=== PATIENT | male | born 1945 | race Hispanic/Latino ===

== ENCOUNTER 2017-12-06 22:39 | Emergency (ER) | payer OTHER ==
[2017-12-06] MEDS ORDERED: LIDOCAINE HCL 1% 20 ML VIAL ONE (23:22)
[2017-12-06] MEDS ORDERED: TETANUS/DIPHTHERIA TOXOID [ADULT] 0.5 ML VIAL IM ONE (23:23)
[2017-12-07] MEDS ORDERED: CEFAZOLIN SODIUM 1 GM VIAL ONE (00:51)
[2017-12-07] MEDS ORDERED: GENTAMICIN SULFATE 80 MG/2 ML VIAL ONE (00:51)
[2017-12-07] MEDS ORDERED: WATER FOR INJECTION,STERILE 20 ML VIAL ONE (00:52)
[2018-03-07] MEDS ORDERED: VERE240SR PO (12:30)
[2018-03-07] MEDS ORDERED: ATOR10TA69 PO (12:30)
[2018-03-07] MEDS ORDERED: VERA120C2 PO (12:30)
[2018-03-07] MEDS ORDERED: GLIP2.5T2 PO (12:30)
[2018-03-07] MEDS ORDERED: CARV12.511 PO (12:30)
[2018-03-07] MEDS ORDERED: ASPI-555 PO (12:30)
[2018-03-07] MEDS ORDERED: LISI10TA7 PO (12:30)
[2018-03-07] MEDS ORDERED: GEMF600T3 PO (12:30)
[2018-03-07] MEDS ORDERED: RANI150C4 PO (12:30)
[2018-03-07] MEDS ORDERED: METF10004 PO (12:30)
== END 2017-12-07 02:06 | disposition left against medical advice (07) ==
LOC: EDH 22:39
DX: S62.637B Displaced fracture of distal phalanx of left little finger, initial encounter for open fracture (principal); S09.8XXA Other specified injuries of head, initial encounter; E11.9 Type 2 diabetes mellitus without complications; E78.5 Hyperlipidemia, unspecified; I10 Essential (primary) hypertension; Z88.1 Allergy status to other antibiotic agents; W18.39XA Other fall on same level, initial encounter; Y93.01 Activity, walking, marching and hiking; Y92.89 Other specified places as the place of occurrence of the external cause; Y99.8 Other external cause status
CPT/HCPCS: 73130; 90471; 90714; 96365; 96372; 99284; J0690; J1580

== ENCOUNTER 2018-03-10 08:26 | Day surgery (SDC) | payer OTHER ==
[~2018-03-10] VITALS: Ht 165.1 cm; Wt 92.6 kg
[~2018-03-10 08:26] MED LIST: ASPI-555 PO; ATOR10TA69 PO; CARV12.511 PO; GEMF600T3 PO; GLIP2.5T2 PO; LISI10TA7 PO; METF10004 PO; RANI150C4 PO; SODIUM CHLORIDE 0.9% 1000ML 1,000 ML IV ONE; VERA120C2 PO; VERE240SR PO
[2018-03-10 08:46] VITALS: BP 146/66
[2018-03-10] MEDS ORDERED: PROPOFOL 1000 MG/100 ML 100 ML IV ONE (10:08)
[2018-03-10] MEDS ORDERED: LIDOCAINE HCL 1% 20 ML VIAL ONE (10:08)
[2018-03-10 10:33] VITALS: BP 88/41
== END 2018-03-10 11:07 | disposition home or self-care (01) ==
LOC: DAH 08:26 → ENDO 08:26
PROVIDERS: ATTEND Internal Medicine Gastroenterology
DX: Z09 Encounter for follow-up examination after completed treatment for conditions other than malignant neoplasm (principal); I10 Essential (primary) hypertension; E78.4 Other hyperlipidemia; I25.10 Atherosclerotic heart disease of native coronary artery without angina pectoris; E11.9 Type 2 diabetes mellitus without complications; M19.90 Unspecified osteoarthritis, unspecified site; Z79.84 Long term (current) use of oral hypoglycemic drugs; Z79.82 Long term (current) use of aspirin; Z86.010 Personal history of colon polyps; Z79.899 Other long term (current) drug therapy; Z98.890 Other specified postprocedural states
CPT/HCPCS: 82948 ×2; 93005; A4606; G0105; J2704; J7030

== ENCOUNTER → 2018-03-18 | Outpatient (CLI) | payer OTHER ==
[~2018-03-18] MED LIST changes: -SODIUM CHLORIDE 0.9% 1000ML 1,000 ML IV ONE
== END | disposition home or self-care (01) ==
LOC: RAH 12:33
PROVIDERS: ATTEND Family Medicine
DX: M79.89 Other specified soft tissue disorders (principal)
CPT/HCPCS: 93971

== ENCOUNTER 2018-03-31 12:32 | Observation (INO) | payer OTHER ==
[~2018-03-31] VITALS: Ht 162.6 cm; Wt 97.5 kg
[2018-03-31] MEDS ORDERED: ONDANSETRON HCL MDV 20ML 2 MG/ML VIAL ONE (12:57)
[2018-03-31 13:00] LABS: BASOPHILS % (AUTO) 1.2 % (0.0-5.0); EOSINOPHILS % (AUTO) 5.7 % (0.0-8.0); HEMATOCRIT 37.2 % (42-54); LYMPHOCYTES % (AUTO) 33.4 % (21.0-51.0); MEAN CORPUSCULAR HEMOGLOBIN 31.9 pg (27.0-33.0); MEAN CORPUSCULAR HGB CONC 35.3 g/dL (32.0-36.0); MEAN CORPUSCULAR VOLUME 90.2 fL (79-99); MONOCYTES % (AUTO) 9.2 % (3.0-13.0); NEUTROPHILS % (AUTO) 50.5 % (40.0-77.0); NUCLEATED RED BLOOD CELLS 0.1 % (0.0-0.19); PLATELET COUNT (AUTO) 295 K/uL (130-400); RED BLOOD CELL COUNT(AUTO) 4.13 MIL/uL (4.50-6.20); RED CELL DISTRIBUTION WIDTH 13.7 % (11.0-15.5); WHITE BLOOD COUNT (AUTO) 6.7 K/uL (4.8-10.8)
[2018-03-31 13:13] LABS: CREATININE 1.4 mg/dL (0.5-1.5); POTASSIUM 5.2 mmol/L (3.5-5.1)
[2018-03-31 13:19] LABS: ALBUMIN 4.6 g/dL (3.5-5.0); BILIRUBIN,DIRECT 0.2 mg/dL (0.0-0.3); BILIRUBIN,TOTAL 0.7 mg/dL (0.2-1.0); TOTAL PROTEIN, SERUM 8.5 g/dL (6.0-8.3)
[2018-03-31 13:27] LABS: APPEARANCE,URINE Cloudy (CLEAR); BILIRUBIN,URINE Negative (NEGATIVE); COLOR,URINE Yellow (YELLOW); GLUCOSE, URINE (UA) TRACE mg/dL (NEGATIVE); KETONES,URINE Trace mg/dL (NEGATIVE); LEUKOCYTE ESTERASE ,URINE Negative (NEGATIVE); NITRATE,URINE Negative (NEGATIVE); OCCULT BLOOD,URINE Negative (NEGATIVE); PROTEIN,URINE POS 2+ (NEGATIVE)
[2018-03-31] MEDS ORDERED: ASPIRIN 325 MG TABLET ONE ×2 (13:34→13:48)
[2018-03-31 13:47] LABS: BACTERIA,URINE Moderate /HPF (None Seen); RBC,URINE 0-1 /HPF (0-1)
[2018-03-31 14:00] LABS: B-TYPE NATRIURETIC PEPTIDE 25 pg/mL (0-100)
[2018-03-31] MEDS ORDERED: ACETAMINOPHEN 325 MG TAB PO PRN ×2 (16:30→19:19)
[2018-03-31] MEDS ORDERED: SODIUM CHLORIDE 0.9% 1000ML 1,000 ML IV SCH (16:30)
[2018-03-31] MEDS ORDERED: ONDANSETRON HCL MDV 20ML 2 MG/ML VIAL IVP PRN (16:30)
[2018-03-31 18:42] LABS: CREATINE KINASE MB 0.8 ng/mL (0.5-3.6); CREATINE KINASE, TOTAL 50 U/L (21-232); MYOGLOBIN 46 ng/mL (10-92); TROPONIN I < 0.04 ng/mL (0.00-0.06)
[2018-03-31 19:00] VITALS: BP 131/67
[2018-03-31 19:02] VITALS: BP 136/65
[2018-03-31 19:04] VITALS: BP 124/60
[2018-03-31] MEDS ORDERED: LACTULOSE 20 GM/30 ML UDCUP PO PRN (23:45)
[2018-03-31] MEDS ORDERED: POTASSIUM CHLORIDE 20 MEQ ERTAB PO PRN (23:45)
[2018-03-31] MEDS ORDERED: LIDOCAINE HCL-MPF 1% 2ML VIAL IVP PRN (23:45)
[2018-03-31] MEDS ORDERED: POTASSIUM CHLORIDE 10% ELIXIR 20 MEQ/15 ML UDCUP PO PRN (23:45)
[2018-03-31] MEDS ORDERED: POTASSIUM CHLORIDE 20MEQ/100ML 100 ML IV PRN (23:45)
[2018-04-01] VITALS (7 sets, daily range): BP systolic 118–160; BP diastolic 62–88
[2018-04-01 00:53] LABS: CREATINE KINASE MB 0.8 ng/mL (0.5-3.6); CREATINE KINASE, TOTAL 51 U/L (21-232); MYOGLOBIN 42 ng/mL (10-92); TROPONIN I < 0.04 ng/mL (0.00-0.06)
[2018-04-01 05:04] LABS: HEMATOCRIT 28.6 % (42-54); MEAN CORPUSCULAR HEMOGLOBIN 33.2 pg (27.0-33.0); MEAN CORPUSCULAR HGB CONC 37.5 g/dL (32.0-36.0); MEAN CORPUSCULAR VOLUME 88.4 fL (79-99); PLATELET COUNT (AUTO) 198 K/uL (130-400); RED BLOOD CELL COUNT(AUTO) 3.23 MIL/uL (4.50-6.20); RED CELL DISTRIBUTION WIDTH 13.4 % (11.0-15.5)
[2018-04-01 05:10] LABS: POTASSIUM 3.8 mmol/L (3.5-5.1)
[2018-04-01 07:04] LABS: CREATINE KINASE MB 0.7 ng/mL (0.5-3.6); CREATINE KINASE, TOTAL 53 U/L (21-232); MYOGLOBIN 55 ng/mL (10-92); TROPONIN I < 0.04 ng/mL (0.00-0.06)
[2018-04-01] MEDS ORDERED: FAMOTIDINE 20MG TAB 20 MG TAB PO SCH (09:00)
[2018-04-01] MEDS: METFORMIN HCL 500 MG TABLET PO SCH (17:23)
[2018-04-01] MEDS: VERAPAMIL HCL 240 MG SRTAB PO SCH (17:23)
[2018-04-01] MEDS ORDERED: ATORVASTATIN CALCIUM 10 MG TABLET PO SCH (21:00)
[2018-04-01] MEDS: GEMFIBROZIL 600 MG TABLET PO SCH (21:14)
[2018-04-01] MEDS: CARVEDILOL 12.5 MG TABLET PO SCH (21:15)
[2018-04-02] VITALS (7 sets, daily range): BP systolic 130–174; BP diastolic 67–78
[2018-04-02] MEDS: METFORMIN HCL 500 MG TABLET PO SCH ×2 (08:00→16:42)
[2018-04-02] MEDS ORDERED: ASPIRIN 81 MG EC TAB PO SCH (09:00)
[2018-04-02] MEDS ORDERED: LISINOPRIL 10 MG TABLET PO SCH (09:00)
[2018-04-02] MEDS ORDERED: GLIPIZIDE XL 2.5MG TAB PO SCH (09:00)
[2018-04-02] MEDS ORDERED: FAMOTIDINE 20MG TAB 20 MG TAB PO SCH (09:00)
[2018-04-02] MEDS ORDERED: VERAPAMIL HCL 120 MG PO SCH (09:00)
[2018-04-02] MEDS: GEMFIBROZIL 600 MG TABLET PO SCH (10:15)
[2018-04-02] MEDS: CARVEDILOL 12.5 MG TABLET PO SCH (10:16)
[2018-04-02] MEDS: VERAPAMIL HCL 240 MG SRTAB PO SCH (16:42)
== END 2018-04-02 19:05 | disposition home or self-care (01) ==
LOC: EDH 12:32 → EDHIP 15:22 → 3BH 20:17
PROVIDERS: ADMIT Internal Medicine; ATTEND Internal Medicine
DX: R55 Syncope and collapse (principal); E11.22 Type 2 diabetes mellitus with diabetic chronic kidney disease; E78.5 Hyperlipidemia, unspecified; I25.10 Atherosclerotic heart disease of native coronary artery without angina pectoris; I12.9 Hypertensive chronic kidney disease with stage 1 through stage 4 chronic kidney disease, or unspecified chronic kidney disease; N18.9 Chronic kidney disease, unspecified; E86.0 Dehydration; Z95.5 Presence of coronary angioplasty implant and graft; Z87.891 Personal history of nicotine dependence; Z79.899 Other long term (current) drug therapy
CPT/HCPCS: 36415 ×2; 70450; 71045; 80048 ×2; 80076; 81001; 82550 ×4; 82553 ×3; 82948 ×8; 83874 ×3; 83880; 84484 ×4; 85025; 85027; 93005 ×4; 93306; 93880; 99285; G0378 ×52

== ENCOUNTER 2021-06-25 11:51 | Emergency (ER) | payer OTHER ==
[~2021-06-25] VITALS: Ht 162.6 cm; Wt 93.0 kg
[~2021-06-25 11:51] MED LIST changes: -ASPI-555 PO; +ASPI-556 PO; -GEMF600T3 PO; +GEMF600T89 PO; +LISI10TA24 PO; -LISI10TA7 PO; +METF-446 PO; -METF10004 PO
[2021-06-25 12:19] LABS: BASOPHILS % (AUTO) 0.5 % (0.0-5.0); EOSINOPHILS % (AUTO) 1.4 % (0.0-8.0); LYMPHOCYTES % (AUTO) 7.5 % (21.0-51.0); MEAN CORPUSCULAR HGB CONC 35.6 g/dL (32.0-36.0); MEAN CORPUSCULAR VOLUME 89.9 fL (79-99); MONOCYTES % (AUTO) 5.2 % (3.0-13.0); NEUTROPHILS % (AUTO) 85.2 % (40.0-77.0); PLATELET COUNT (AUTO) 197 K/uL (130-400); RED BLOOD CELL COUNT(AUTO) 4.56 MIL/uL (4.50-6.20); RED CELL DISTRIBUTION WIDTH 13.1 % (11.0-15.5); WHITE BLOOD COUNT (AUTO) 12.1 K/uL (4.8-10.8)
[2021-06-25 12:30] LABS: CARBON DIOXIDE 23 mmol/L (21-32); CHLORIDE 104 mmol/L (101-111); CREATININE 0.9 mg/dL (0.5-1.5); GLOMERULAR FILTR. RATE CALC 87 mL/min (>60); GLUCOSE,RANDOM 243 mg/dL (70-105); POTASSIUM 4.4 mmol/L (3.5-5.1); SODIUM SERUM 140 mmol/L (136-145); UREA NITROGEN, BLOOD 25 mg/dL (7-18)
[2021-06-25 12:41] LABS: ALANINE AMINOTRANSFERASE 50 U/L (12-78); ALBUMIN 4.2 g/dL (3.5-5.0); AMYLASE 48 U/L (25-115); ASPARTATE AMINOTRANSFERASE 31 U/L (10-37); BILIRUBIN,TOTAL 0.8 mg/dL (0.2-1.0); CREATINE KINASE, TOTAL 68 U/L (21-232); LIPASE 84 U/L (114-286); MYOGLOBIN 36 ng/mL (10-92); TOTAL PROTEIN, SERUM 8.3 g/dL (6.0-8.3); TROPONIN I < 0.04 ng/mL (0.00-0.06)
[2021-06-25] MEDS ORDERED: LIDO 2% VISC 30ML+MAG/AL/SIMETH 30ML+DICYCLOMINE 20MG 10ML PO PRN ×3 (13:00)
[2021-06-25] MEDS ORDERED: 0.9%NACL 1000ML 1,000 ML IV SCH (13:00)
[2021-06-25] MEDS ORDERED: COMPOUND PO MISCELLANEOUS 1 EACH MISC MISC PRN (13:00)
[2021-06-25] MEDS ORDERED: MORPHINE 4 MG SYG IVP SCH (13:00)
[2021-06-25] MEDS ORDERED: DICYCLOMINE 20MG (10MG/ML) AMP IM ONE (13:00)
[2021-06-25] MEDS ORDERED: PANTOPRAZOLE 40 MG/VIAL IVP SCH (13:00)
[2021-06-25] MEDS ORDERED: LIDOCAINE HCL 2% VISCOUS 15 ML UDCUP PO ONE (13:00)
[2021-06-25] MEDS ORDERED: ONDANSETRON 4MG INJ IVP SCH (13:00)
[2021-06-25] MEDS ORDERED: IOHEXOL 350 MG/ML 100ML INFUS..BTL IV ONE (13:09)
[2021-06-25 14:01] VITALS: BP 129/65
[2021-06-25 14:54] LABS: APPEARANCE,URINE Clear (CLEAR); BILIRUBIN,URINE Negative (NEGATIVE); COLOR,URINE Yellow (YELLOW); GLUCOSE, URINE (UA) >=1000 mg/dL (NEGATIVE); KETONES,URINE Negative (NEGATIVE); LEUKOCYTE ESTERASE ,URINE Negative (NEGATIVE); NITRATE,URINE Negative (NEGATIVE); OCCULT BLOOD,URINE Negative (NEGATIVE); PROTEIN,URINE Negative (NEGATIVE); UROBILINOGEN,URINE 0.2 mg/dL (0.2-1.0)
[2021-06-25 15:30] LABS: BACTERIA,URINE Rare /HPF (None Seen); RBC,URINE 0-1 /HPF (0-1); SQUAMOUS EPITHELIAL CELL,UR Rare /HPF (0-2); WBC,URINE 0-1 /HPF (0-1)
[2021-06-25] MEDS ORDERED: DICY20TA2 PO (16:57)
[2021-06-25] MEDS ORDERED: ONDA4TAB10 PO (16:57)
[2021-06-25] MEDS ORDERED: PANT40TA54 PO (16:57)
[2021-06-25] MEDS ORDERED: LIDOCAINE HCL 2% VISCOUS 15 ML UDCUP ONE (17:12)
[2021-06-25 17:21] VITALS: BP 114/49
[2021-06-25] MEDS ORDERED: MAG/ALUM/SIMETH 30 ML UDCUP PO ONE (18:00)
== END 2021-06-25 17:22 | disposition home or self-care (01) ==
LOC: EDH 11:51
DX: K29.00 Acute gastritis without bleeding (principal); K21.9 Gastro-esophageal reflux disease without esophagitis; E11.9 Type 2 diabetes mellitus without complications; E78.00 Pure hypercholesterolemia, unspecified; I10 Essential (primary) hypertension; Z79.82 Long term (current) use of aspirin; Z79.84 Long term (current) use of oral hypoglycemic drugs; Z79.899 Other long term (current) drug therapy; Z88.5 Allergy status to narcotic agent; Z95.5 Presence of coronary angioplasty implant and graft
CPT/HCPCS: 36415; 71045; 74177; 76705; 80053; 81001; 82150; 82550; 83690; 83874; 84484 ×2; 85025; 93005; 96361; 96374; 96375; 99285; C9113; J2405; Q9967; J2270

== ENCOUNTER 2021-09-12 11:52 | Observation (INO) | payer OTHER ==
[~2021-09-12] VITALS: Ht 162.6 cm; Wt 60.9 kg
[~2021-09-12 11:52] MED LIST changes: +DICY20TA2 PO; +ONDA4TAB10 PO; +PANT40TA54 PO
[2021-09-12 12:17] LABS: HEMATOCRIT 38.4 % (42-54); MEAN CORPUSCULAR HEMOGLOBIN 31.7 pg (27.0-33.0); MEAN CORPUSCULAR HGB CONC 34.9 g/dL (32.0-36.0); MEAN CORPUSCULAR VOLUME 90.8 fL (79-99); PLATELET COUNT (AUTO) 169 K/uL (130-400); RED BLOOD CELL COUNT(AUTO) 4.23 MIL/uL (4.50-6.20); RED CELL DISTRIBUTION WIDTH 12.9 % (11.0-15.5); WHITE BLOOD COUNT (AUTO) 6.3 K/uL (4.8-10.8)
[2021-09-12 12:33] LABS: CREATININE 1.1 mg/dL (0.5-1.5); POTASSIUM 4.7 mmol/L (3.5-5.1)
[2021-09-12 12:42] LABS: ALBUMIN 4.1 g/dL (3.5-5.0); BILIRUBIN,TOTAL 0.6 mg/dL (0.2-1.0)
[2021-09-12 13:25] LABS: BAND NEUTROPHILS % (MANUAL) 2 % (0-2); EOSINOPHILS % (MANUAL) 1 % (1-6); LYMPHOCYTES % (MANUAL) 20 % (22-44); MAN.DIFF COMMENT-IMPRESSION MANUAL DIFFERENTIAL; MONOCYTES % (MANUAL) 7 % (2-9); PLATELET MORPHOLOGY COMMENT ADEQUATE; SEGMENTED NEUTROPHILS % 70 % (40-70)
[2021-09-12] MEDS ORDERED: ACETAMINOPHEN 325 MG TAB PO PRN (15:00)
[2021-09-12] MEDS ORDERED: CLONIDINE HCL 0.1 MG TABLET PO PRN (15:00)
[2021-09-12] MEDS ORDERED: ONDANSETRON 4MG INJ IVP PRN (15:00)
[2021-09-12] MEDS ORDERED: HYDRALAZINE 20MG/ML VIAL IV PRN (15:00)
[2021-09-12] MEDS ORDERED: ACETAMINOPHEN 650 MG SUPPOSITORY RC PRN (15:00)
[2021-09-12 15:04] LABS: APPEARANCE,URINE Clear (CLEAR); BILIRUBIN,URINE Negative (NEGATIVE); COLOR,URINE Yellow (YELLOW); GLUCOSE, URINE (UA) >=1000 mg/dL (NEGATIVE); KETONES,URINE Negative (NEGATIVE); LEUKOCYTE ESTERASE ,URINE Negative (NEGATIVE); NITRATE,URINE Negative (NEGATIVE); OCCULT BLOOD,URINE Negative (NEGATIVE); PROTEIN,URINE Negative (NEGATIVE); UROBILINOGEN,URINE 0.2 mg/dL (0.2-1.0)
[2021-09-12 15:18] LABS: BACTERIA,URINE Rare /HPF (None Seen); RBC,URINE 0-1 /HPF (0-1); SQUAMOUS EPITHELIAL CELL,UR Rare /HPF (0-2); WBC,URINE 0-1 /HPF (0-1)
[2021-09-12] MEDS: LACTATED RINGERS 1000ML 1,000 ML IV SCH ×2 (15:57→23:20)
[2021-09-12 22:40] VITALS: BP 171/42
[2021-09-12] MEDS ORDERED: GLUCAGON 1MG KIT 1 MG ML IM PRN (23:00)
[2021-09-12] MEDS ORDERED: KCL 20 MEQ ERTAB PO PRN (23:00)
[2021-09-12] MEDS ORDERED: DEXTROSE 50%-WATER 50 ML DISP.SYRIN IV PRN (23:00)
[2021-09-12] MEDS ORDERED: POTASSIUM CHLORIDE 10% ELIXIR 20 MEQ/15 ML UDCUP PO PRN (23:00)
[2021-09-12] MEDS ORDERED: POTASSIUM CHLORIDE 20MEQ/100ML 100 ML IV PRN (23:00)
[2021-09-12] MEDS ORDERED: LIDOCAINE HCL-MPF 1% 2ML VIAL IV PRN (23:00)
[2021-09-13 02:46] LABS: BASOPHILS % (AUTO) 0.6 % (0.0-5.0); EOSINOPHILS % (AUTO) 2.4 % (0.0-8.0); HEMATOCRIT 36.7 % (42-54); LYMPHOCYTES % (AUTO) 25.2 % (21.0-51.0); MEAN CORPUSCULAR HEMOGLOBIN 31.7 pg (27.0-33.0); MEAN CORPUSCULAR HGB CONC 35.1 g/dL (32.0-36.0); MEAN CORPUSCULAR VOLUME 90.2 fL (79-99); MONOCYTES % (AUTO) 9.5 % (3.0-13.0); PLATELET COUNT (AUTO) 163 K/uL (130-400); RED BLOOD CELL COUNT(AUTO) 4.07 MIL/uL (4.50-6.20); RED CELL DISTRIBUTION WIDTH 12.9 % (11.0-15.5); WHITE BLOOD COUNT (AUTO) 7.2 K/uL (4.8-10.8)
[2021-09-13 03:05] LABS: B-TYPE NATRIURETIC PEPTIDE 77 pg/mL (0-100)
[2021-09-13 03:09] LABS: CREATININE 0.9 mg/dL (0.5-1.5); MAGNESIUM 1.8 mg/dL (1.80-2.40); PHOSPHORUS 3.5 mg/dL (2.5-4.9); POTASSIUM 3.6 mmol/L (3.5-5.1); THYROID STIMULATING HORMONE 4.16 uIU/mL (0.36-3.74)
[2021-09-13 03:11] LABS: HEMOGLOBIN A1C 6.9 % (4.0-6.0)
[2021-09-13 04:27] VITALS: BP 140/64
[2021-09-13 04:28] VITALS: BP_SYST 136; BP_SYST 139; BP_DIAS 58; BP_DIAS 61
[2021-09-13] MEDS: LACTATED RINGERS 1000ML 1,000 ML IV SCH ×3 (07:00→22:11)
[2021-09-13] MEDS: INSULIN HUMULIN R 100 UNIT/ML 3ML SQ SCH ×4 (07:30→20:12)
[2021-09-13 08:37] VITALS: BP 132/61
[2021-09-13] MEDS: PANTOPRAZOLE 40 MG TAB DR PO SCH (10:44)
[2021-09-13] MEDS: ENOXAPARIN SODIUM 40 MG/0.4 ML SYRINGE SQ SCH (10:45)
[2021-09-13] MEDS ORDERED: ICOS1CAP PO (11:05)
[2021-09-13] MEDS ORDERED: FERR-72 PO (11:05)
[2021-09-13] MEDS ORDERED: EMPA10TA PO (11:05)
[2021-09-13] MEDS ORDERED: ATOR40TA69 PO (11:05)
[2021-09-13] MEDS ORDERED: ASPI-1197 PO (11:05)
[2021-09-13] MEDS ORDERED: FAMO20TA8 PO (11:05)
[2021-09-13] MEDS ORDERED: VERA240T95 PO (11:05)
[2021-09-13] MEDS ORDERED: CARV12.511 PO (11:05)
[2021-09-13] MEDS ORDERED: LISI10TA24 PO (11:05)
[2021-09-13] MEDS ORDERED: GLIP2.5T2 PO (11:05)
[2021-09-13] MEDS ORDERED: METF-527 PO (11:05)
[2021-09-13] MEDS ORDERED: VERA120T92 PO (11:05)
[2021-09-13] MEDS ORDERED: TAMS-1 PO (11:05)
[2021-09-13] MEDS ORDERED: CYAN500T9 PO (11:05)
[2021-09-13 12:36] VITALS: BP 140/70
[2021-09-13 16:49] VITALS: BP 141/60
[2021-09-13] MEDS: VERAPAMIL HCL 240 MG SRTAB PO SCH (20:17)
[2021-09-13] MEDS: ATORVASTATIN 40 MG TABLET PO SCH (20:17)
[2021-09-13] MEDS: FAMOTIDINE 20MG TAB PO SCH (20:17)
[2021-09-13 20:19] VITALS: BP 149/73
[2021-09-14] VITALS (7 sets, daily range): BP systolic 144–176; BP diastolic 45–86
[2021-09-14] MEDS: INSULIN HUMULIN R 100 UNIT/ML 3ML SQ SCH ×4 (05:54→20:04)
[2021-09-14] MEDS: LACTATED RINGERS 1000ML 1,000 ML IV SCH (05:55)
[2021-09-14] MEDS: CARVEDILOL 6.25 MG TABLET PO SCH ×2 (08:41→19:58)
[2021-09-14] MEDS: FAMOTIDINE 20MG TAB PO SCH ×2 (08:47→19:58)
[2021-09-14] MEDS: PANTOPRAZOLE 40 MG TAB DR PO SCH (08:47)
[2021-09-14] MEDS: ENOXAPARIN SODIUM 40 MG/0.4 ML SYRINGE SQ SCH (08:51)
[2021-09-14] MEDS ORDERED: VERAPAMIL HCL 240 MG SRTAB PO SCH ×2 (09:00→11:00)
[2021-09-14] MEDS ORDERED: ASPIRIN 81MG CHEW TAB PO SCH (09:00)
[2021-09-14] MEDS ORDERED: CYANOCOBALAMIN (VITAMIN B-12) 1,000 MCG TABLET PO SCH (09:00)
[2021-09-14] MEDS ORDERED: FERROUS SULFATE 325 MG TABLET.DR PO SCH (09:00)
[2021-09-14] MEDS ORDERED: TAMSULOSIN HCL 0.4 MG CAP.ER.24H PO SCH (09:00)
[2021-09-14] MEDS ORDERED: LISINOPRIL 10 MG TABLET PO SCH (09:00)
[2021-09-14] MEDS ORDERED: IBUPROFEN 800 MG TAB PO PRN (17:30)
[2021-09-14] MEDS ORDERED: IBUP-2077 PO (18:24)
[2021-09-14] MEDS ORDERED: CARV6.2579 PO (18:24)
[2021-09-14] MEDS: VERAPAMIL HCL 240 MG SRTAB PO SCH (19:57)
[2021-09-14] MEDS: ATORVASTATIN 40 MG TABLET PO SCH (19:58)
== END 2021-09-14 21:30 | disposition home or self-care (01) ==
LOC: EDH 11:52 → INTOOBSV 14:40 → EDHIP 14:40 → 3BH 21:37
PROVIDERS: ADMIT Internal Medicine; ATTEND Internal Medicine
DX: R55 Syncope and collapse (principal); Z20.822 Contact with and (suspected) exposure to COVID-19; R00.1 Bradycardia, unspecified; I25.10 Atherosclerotic heart disease of native coronary artery without angina pectoris; E11.9 Type 2 diabetes mellitus without complications; I11.9 Hypertensive heart disease without heart failure; G47.33 Obstructive sleep apnea (adult) (pediatric); E66.9 Obesity, unspecified; E78.5 Hyperlipidemia, unspecified; K21.9 Gastro-esophageal reflux disease without esophagitis; Z79.82 Long term (current) use of aspirin; Z79.84 Long term (current) use of oral hypoglycemic drugs; Z79.899 Other long term (current) drug therapy; Z95.5 Presence of coronary angioplasty implant and graft
CPT/HCPCS: 36415 ×2; 70450; 70544; 70551; 71045; 72050; 80048; 80053; 81001; 82550 ×4; 82948 ×8; 83036; 83735; 83874 ×4; 83880; 84100; 84443; 84484 ×4; 85025 ×2; 85378; 87635; 93005; 93306; 93356; 93880; 96360; 96361 ×2; 96372 ×2; 97161; 99285; G0378 ×53; J1650 ×2; J1815; J7120 ×2

== ENCOUNTER → 2023-09-14 | Outpatient (CLI) | payer OTHER ==
[~2023-09-14] MED LIST changes: +ASPI-1197 PO; -ASPI-556 PO; -ATOR10TA69 PO; +ATOR40TA69 PO; -CARV12.511 PO; +CARV6.2579 PO; +CYAN500T9 PO; -DICY20TA2 PO; +EMPA10TA PO; +FAMO20TA8 PO; +FERR-72 PO; -GEMF600T89 PO; +IBUP-2077 PO; +ICOS1CAP PO; -METF-446 PO; +METF-527 PO; -ONDA4TAB10 PO; -PANT40TA54 PO; -RANI150C4 PO; +TAMS-1 PO; -VERA120C2 PO; +VERA120T92 PO; +VERA240T95 PO; -VERE240SR PO
== END | disposition home or self-care (01) ==
LOC: SHCH 14:01
PROVIDERS: ATTEND Internal Medicine Cardiovascular Disease
DX: I95.1 Orthostatic hypotension (principal); R00.1 Bradycardia, unspecified; I47.10 Supraventricular tachycardia, unspecified; I51.89 Other ill-defined heart diseases
CPT/HCPCS: 93306

== ENCOUNTER 2023-09-30 07:27 | Observation (INO) | payer OTHER ==
[2023-09-27 15:08] LABS: BASOPHILS # (AUTO) 0.06 K/uL (0.00-0.20); BASOPHILS % (AUTO) 0.9 % (0.0-5.0); EOSINOPHILS # (AUTO) 0.16 K/uL (0.00-0.70); EOSINOPHILS % (AUTO) 2.4 % (0.0-8.0); HEMATOCRIT 36.1 % (42-54); IMMATURE GRANULOCYTE ABSOLUTE 0.02 K/uL (0-1); LYMPHOCYTES # (AUTO) 1.3 K/uL (1.0-4.8); LYMPHOCYTES % (AUTO) 19.7 % (21.0-51.0); MEAN CORPUSCULAR HEMOGLOBIN 32.9 pg (27.0-33.0); MEAN CORPUSCULAR HGB CONC 34.3 g/dL (32.0-36.0); MEAN CORPUSCULAR VOLUME 95.8 fL (79-99); MONOCYTES # (AUTO) 0.6 K/uL (0.1-1.0); NEUTROPHILS # (AUTO) 4.4 K/uL (1.8-7.7); NEUTROPHILS % (AUTO) 67.7 % (40.0-77.0); PLATELET COUNT (AUTO) 175 K/uL (130-400); RED BLOOD CELL COUNT(AUTO) 3.77 MIL/uL (4.50-6.20); RED CELL DISTRIBUTION WIDTH 13.1 % (11.0-15.5); WHITE BLOOD COUNT (AUTO) 6.6 K/uL (4.8-10.8)
[2023-09-27 15:20] LABS: CREATININE 1.1 mg/dL (0.5-1.5); POTASSIUM 4.8 mmol/L (3.5-5.1)
[2023-09-27 15:23] LABS: INR 0.97 (0.85-1.15); PROTHROMBIN TIME 11.3 SEC (9.6-11.6)
[2023-09-27 15:24] LABS: PARTIAL THROMBOPLASTIN TIME 27.9 SEC (26.3-35.5)
[2023-09-27 15:35] VITALS: BP 175/57; PULSE 40; RESP 16
[2023-09-30] VITALS (16 sets, daily range): BP systolic 127–181; BP diastolic 43–75; PULSE 55–87; RESP 14–21; O2SAT 99
[~2023-09-30] VITALS: Ht 162.6 cm; Wt 83.2 kg
[~2023-09-30 07:27] MED LIST changes: +BUSP7.5T7 PO; -CARV6.2579 PO; +CYAN-52 PO; -CYAN500T9 PO; +DULO20CA18 PO; -EMPA10TA PO; +EMPA1TAB9 PO; -FAMO20TA8 PO; +GABA-529 PO; +GLUC15006 PO; -IBUP-2077 PO; -METF-527 PO; +MULT-1367 PO; +OMEP40CA21 PO; -VERA120T92 PO; -VERA240T95 PO; +VITA-395 PO
[2023-09-30] MEDS ORDERED: 0.9%NACL 1000ML 1,000 ML IV ONE (07:52)
[2023-09-30] MEDS ORDERED: BUPIVACAINE/PF 0.25% 30ML VIAL IJ ONE (10:03)
[2023-09-30] MEDS ORDERED: LIDOCAINE HCL 1% MDV 50ML VIAL ONE (10:03)
[2023-09-30] MEDS ORDERED: IOHEXOL-350 50ML VIAL IV ONE (10:03)
[2023-09-30] MEDS ORDERED: CEFAZOLIN SODIUM 1 GM VIAL ONE (10:05)
[2023-09-30] MEDS ORDERED: MIDAZOLAM HCL 1 MG/ML 2ML VIAL ONE ×2 (10:05→10:38)
[2023-09-30] MEDS ORDERED: FENTANYL CITRATE PF 50 MCG/1 ML 2ML VIAL ONE (10:05)
[2023-09-30] MEDS ORDERED: TRAM50TA4 PO (11:28)
[2023-09-30] MEDS ORDERED: ACETAMINOPHEN 500 MG TABLET PO PRN (11:30)
[2023-09-30] MEDS ORDERED: ACETAMINOPHEN WITH CODEINE 1 TAB TAB PO PRN (11:30)
[2023-10-01] VITALS (13 sets, daily range): BP systolic 130–167; BP diastolic 54–87; PULSE 61–94; RESP 18–20; O2SAT 95
[2023-10-01] MEDS ORDERED: LIDOCAINE HCL 1% MDV 50ML VIAL ONE (09:49)
[2023-10-01] MEDS ORDERED: CEFAZOLIN SODIUM 1 GM VIAL ONE (09:50)
[2023-10-01] MEDS ORDERED: IOHEXOL-350 50ML VIAL IV ONE (09:50)
[2023-10-01] MEDS ORDERED: FENTANYL CITRATE PF 50 MCG/1 ML 2ML VIAL ONE (09:50)
[2023-10-01] MEDS ORDERED: MIDAZOLAM HCL 1 MG/ML 2ML VIAL ONE ×2 (09:50→10:43)
[2023-10-01] MEDS ORDERED: BUPIVACAINE/PF 0.25% 30ML VIAL IJ ONE (09:50)
[2023-10-01] MEDS ORDERED: BACITRACIN 1 EACH PACKET TP ONE (09:52)
[2023-10-01] MEDS ORDERED: VANCOMYCIN 1G/250ML KIT 500 ML IV ONE (10:17)
[2023-10-01] MEDS ORDERED: DiphenhydrAMINE HCL 50 MG/ML VIAL ONE (10:40)
[2023-10-01] MEDS ORDERED: ACETAMINOPHEN WITH CODEINE 1 TAB TAB PO PRN (11:30)
[2023-10-01] MEDS ORDERED: ACETAMINOPHEN 500 MG TABLET PO PRN (11:30)
== END 2023-10-01 18:30 | disposition home or self-care (01) ==
LOC: DAH 07:27 → 4DH 07:28 → DAH 07:28
PROVIDERS: ADMIT Internal Medicine Cardiovascular Disease; ATTEND Internal Medicine Cardiovascular Disease
DX: I44.2 Atrioventricular block, complete (principal); I45.10 Unspecified right bundle-branch block; I95.1 Orthostatic hypotension; I25.10 Atherosclerotic heart disease of native coronary artery without angina pectoris; E78.5 Hyperlipidemia, unspecified; I10 Essential (primary) hypertension; E11.9 Type 2 diabetes mellitus without complications; K21.9 Gastro-esophageal reflux disease without esophagitis; G89.29 Other chronic pain; Z88.5 Allergy status to narcotic agent
CPT/HCPCS: G0378 ×76; 33208; 33215; 36415; 71045; 80048; 82948; 85025; 85610; 85730; 93005; 99156; 99157; A4606; C1785; J0690; J1200; J2250; J3010; J3370; J3490; J7030; Q9967; A4215; A4216; A4221; A4222; A4223; A4663; C1898; J0665

== ENCOUNTER → 2024-04-27 | Outpatient (CLI) | payer OTHER ==
[~2024-04-27] MED LIST changes: +TRAM50TA4 PO
[2024-04-27] MEDS: REGADENOSON 0.4 MG/5 ML PF SYG IVP ONE (11:25)
== END | disposition home or self-care (01) ==
LOC: SHCH 08:26
PROVIDERS: ATTEND Internal Medicine Cardiovascular Disease
DX: I47.10 Supraventricular tachycardia, unspecified (principal); I48.0 Paroxysmal atrial fibrillation; Z79.899 Other long term (current) drug therapy; Z95.0 Presence of cardiac pacemaker
CPT/HCPCS: 78452; 93017; J2785; A9500 ×2; 96374

== ENCOUNTER → 2025-08-06 | Outpatient (CLI) | payer OTHER ==
[~2025-08-06] MED LIST changes: -GLIP2.5T2 PO; +GLIP2.5T23 PO; +IOHEXOL 350 MG/ML 100ML INFUS..BTL IV ONE; -TAMS-1 PO; +TAMS-55 PO
--- NOTE | 2025-08-10 10:17 | CARDIOLOGY ---
RAD REPORT: [facility] [place] CT ANGIO RADIOLOGY REPORT: CORONARY CT ANGIOGRAPHY DATE: Aug 06, 2025 QUALITY: Excellent CLINICAL HISTORY AND INDICATION: [ h/o PCI, NSVT ] TECHNIQUE: After obtaining a preliminary general manager oracle data cloud image, contrast imaging performed on an [employer] [id number] scanner. A dedicated, limited window, coronary imaging protocol was used, with single breath-hold, retrospective ECG gating, and automated arrhythmia rejection. 100 cc of low osmolar contrast agent: Omnipaque 350 was delivered via a 18-gauge IV catheter in the right antecubital fossa, using a power injector and followed by 60 cc of normal saline bolus as a chaser. Collimated images were reformatted at 0.5 mm intervals, and sent to an offline independent workstation for interpretation, using 3D anatomic reconstructions: Curved multiplanar reconstructions, maximum intensity projections, and multiplanar imaging. 20 mg IV metoprolol was administered prior to scanning. 0.8 mg SL nitroglycerin was given. CORONARY ARTERY DESCRIPTIONS: The coronary arteries arise in normal position. Left main coronary artery: Normal caliber vessel that bifurcates into the LAD and LCx. The left main is calcified distally with >50% stenosis. Left anterior descending coronary artery: Normal caliber vessel and gives rise to diagonal and septal branches. There is mixed calcified and noncalcified plaque in the ostial to mid LAD with severe stenosis of 80-99% stenosis. Left circumflex coronary artery: Normal caliber, nondominant and gives rise to a large OM branch. There is mixed calcified and noncalcified plaque in the ostial LCx with severe stenosis of 80-99% stenosis. There is a drug eluting stent in the mid LCx, however, due to stent strut artifact this study cannot quantitate for in-stent stenosis. Right coronary artery: Large, dominant vessel giving rise to the PL and PDA branches. Due to motion artifact, not able to quantitate for luminal stenosis. Abrupt spike in heart rate during contrast injection and produced motion artifact in this study. 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 Thoracic Aorta: Normal diameter. Dariela Benítez MD Cardiovascular Disease [facility] DARIELA BENÍTEZ MD Aug 10, 2025 10:17
== END | disposition home or self-care (01) ==
LOC: RAH 09:12
PROVIDERS: ATTEND Internal Medicine Cardiovascular Disease
DX: I25.10 Atherosclerotic heart disease of native coronary artery without angina pectoris (principal); I47.29 Other ventricular tachycardia
CPT/HCPCS: 75574; J3490 ×2; Q9967